=== PATIENT | male | born 1945 | race Caucasian/White ===

== ENCOUNTER → 2018-06-11 | Outpatient (CLI) | payer OTHER | LOC: MRI 13:58 | DX: M47.816 Spondylosis without myelopathy or radiculopathy, lumbar region (principal); M47.814 Spondylosis without myelopathy or radiculopathy, thoracic region; M48.061 Spinal stenosis, lumbar region without neurogenic claudication; M48.02 Spinal stenosis, cervical region; M41.86 Other forms of scoliosis, lumbar region; M51.36 Other intervertebral disc degeneration, lumbar region; M51.26 Other intervertebral disc displacement, lumbar region; M25.78 Osteophyte, vertebrae; M12.88 Other specific arthropathies, not elsewhere classified, other specified site; M50.221 Other cervical disc displacement at C4-C5 level; M50.321 Other cervical disc degeneration at C4-C5 level ==

== ENCOUNTER → 2020-01-03 | Outpatient (CLI) | payer OTHER ==
[~2020-01-03] MED LIST: ADVAIR 250-501 EACH INH; ARICEPT10 M1 PO; BELSOMRA10 MG PO; CARVEDILOL12.5 MG PO; CLONAZEPAM 0.50.5 M1 PO; FISH OIL 1,001000 M3 PO; FUROSEMIDE 20 M20 MG PO; GABAPENTIN600 M1 PO; HYDROCODON-ACE1 EAC5 PO; IPRAT-ALBUT 0.5-3 ML INH; LIDODERM1 EACH TOP; LOSARTAN POTASS50 MG PO; LYRICA100 MG PO; NITROGLYCERIN0.3 M1 SUBLING; NOVOLIN R100 UNIT/1 SUBQ; NOVOLOG MI100 UNIT/M SUBQ; OXYCODONE HCL20 M1 PO; OXYCONTIN20 M1 PO; PLAVIX 75 MG TA75 MG PO; SINEMET 25-1001 EAC1 PO; SOMA350 MG PO; VENTOLIN HFA 1818 GM INH; WELLBUTRIN SR100 MG PO; ZETIA10 MG PO
--- NOTE | ~2020-01-03 | HPC ---
[facility] [place] [address] PAIN MANAGEMENT CONSULTATION Name: ANAIS FOSTER Room #: REG MAMADOU Dionte.#: [id number] Admission: 01/03/20 Attend Phys: Fritz Nuñez DO Discharge: Date of : 47 Report #: [id number] THIS REPORT FOR: cc: Carlos Stewart MD, John A. MD Johnson, James E. DO ~ CC: Fritz Garcia RN DATE OF SERVICE: 01/03/2020 REFERRING PHYSICIAN: Carlos Stewart MD CHIEF COMPLAINT: Low back pain, right lower extremity pain. HISTORY OF PRESENT ILLNESS: As you know, the patient is a 74-year-old male who reports longstanding history of low back pain, right lower extremity pain with paresthesias. The patient states his pain began to intensify on 07/10/2019. He denies any specific injury or trauma that may have led to symptom development. The patient has had longstanding history of progressively worsening low back symptoms. Imaging from 2018 showed severe lateral recess stenosis at 2 levels consistent with the patient's pain distribution in the low back and right lower extremity. The patient recently sought evaluation through his neurosurgeon team who advised him to trial epidural injections. He is on excessively high doses of opioids taking over 290 morphine equivalents a day, 200 mg over what the CDC recommends for top dose of opioid medication for chronic pain as well as taking high-dose gabapentin and concomitant Lyrica, though these both have similar activity. Despite these medications, his pain remains at a level of reported 8-10/10. He has been referred to our clinic to discuss the possibility of undergoing an epidural injection in hopes of improving pain. The patient indicates his pain is continuous. He describes the pain as throbbing, sharp, stabbing, tender, numbness and tingling. He places current pain score at 8/10, daily average at 10/10, worst pain has been is 10/10. The patient states that activities such as sitting for long periods of time or even standing for long periods of time exacerbates symptoms, walking tends to be the only thing that improves the pain and medications. He has been referred to our service to discuss treatment options for lumbar radiculopathy secondary to severe and progressively worsening lateral recess stenosis. PAST MEDICAL HISTORY: 1. Diabetes mellitus type 2. [place] [address] PAIN MANAGEMENT CONSULTATION Name: ANAIS FOSTER Lesvia Room #: REG MAMADOU Flood#: [id number] Admission: 01/03/20 Attend Phys: Fritz Nuñez DO Discharge: Date of : 47 Report #: [id number] 2. Chronic asthma. 3. Severe chronic obstructive pulmonary disease. 4. Degenerative joint disease. 5. Osteoarthritis. 6. Hypertension. 7. Chronic lumbar radiculopathy. 8. Movement disorder. 9. Dyslipidemia. 10. Chronic anticoagulation. 11. Chronic insomnia. 12. Depression. 13. Muscle spasms. PAST SURGICAL HISTORY: 1. Thoracotomy with decortication. 2. Cervical fusion. SOCIAL HISTORY: The patient reports he is a 2-pack a day smoker and has done so for greater than 40 years, a total of [id number] history of smoking. He denies IV or illicit drug use. Denies any chronic alcohol use. 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 He is not receiving workmen's compensation nor is he trying to obtain disability benefits. He is not in litigation in regards to pain. He is unaccompanied at today's visit. REVIEW OF SYSTEMS: Positive for fatigue and weakness, shortness of breath with walking or lying flat, chest pain, frequent and recurrent cough, abdominal pain, nocturia, numbness and tingling sensations, tremors, paralysis, stroke, nervousness, depression, insomnia, insulin-dependent diabetes. All others are negative per 12-point review of systems other than those listed in history of present illness. Pain impact score 55/70, indicating severe interference of daily activities secondary to pain. ALLERGIES: SULFA. CURRENT MEDICATIONS: OxyContin 20 mg 3 times a day, oxycodone 20 mg 4 times a day, hydrocodone 10/325 one tab every 6 hours p.r.n. for pain, maximum of 8 per day; albuterol 2 puffs q. 4 hours p.r.n.; Sinemet 25/100 mg 3 times a day; omega-3 fish oil 1 tab per day; gabapentin 600 mg 4 times a day; Zetia 10 mg once a day; clonazepam 2 mg 3 times a day; Lidoderm patch applied topically every 12 hours at a time; Plavix 75 mg per day; losartan 25 mg per day; Lyrica 100 mg 3 times a day; Advair Diskus 250/50 one puff b.i.d.; donepezil 10 mg once a day; Belsomra 10 mg once a day; carvedilol 12.5 mg 2 tabs per day; NovoLog 10 units subcutaneous twice a day with meals; furosemide 20 mg per day; nitroglycerin 0.4 mg sublingual p.r.n.; bupropion 100 mg once a day; Ventolin 2 puffs every 6 hours; carisoprodol 350 mg 3 times a day. [address] [place] [address] PAIN MANAGEMENT CONSULTATION Name: ANAIS FOSTER Room #: REG [facility]#: [id number] Admission: 01/03/20 Attend Phys: Fritz Nuñez DO Discharge: Date of : 47 Report #: [id number] IMAGING: MRI lumbar spine obtained 06/11/2018 shows leftward scoliosis of the lumbar spine with multilevel degenerative disk disease and facet arthropathy. This has progressed significantly since 2005. Severe narrowing of the right lateral recess at L3-L4, likely compression of the right L4 nerve root. Severe narrowing of the left lateral recesses at L4-L5, abutting and compressing the L5 nerve root on the left. PQRS: The patient has known arthritic changes of the cervical, thoracic and lumbar spine, bilateral hips and knees. No rheumatoid arthritis. He is placing current pain score 8/10. He is a fall risk, but has not had a fall in last 3 months. He is utilizing a cane for ambulation and balance. He is on blood thinners. He is treated for hypertension. He is on chronic opioids and an excessively high dose on a daily basis. He has a high risk of opioid addiction. Pain impact score is calculated at 55/70, severe interference of daily activities secondary to pain. PHYSICAL EXAMINATION: VITAL SIGNS: Blood pressure 123/80, pulse 88, respiratory rate 16 and unlabored. The patient is 100% on room air. Height is not reported, weight 168 pounds. GENERAL: Well-developed, kyphotic and scoliotic 74-year-old male, appears much older than stated age, smells strongly of tobacco smoke, placing current pain score at 8/10. HEENT: Normocephalic, atraumatic. Pupils equal, round, reactive to light. NEUROLOGIC: Speech is fluent for the patient. He is short of breath with full sentences. LUNGS: Noted wheezing and prolonged expiratory phase. He is coughing consistently throughout our examination. EXTREMITIES: Show no clubbing, no cyanosis, no edema. MUSCULOSKELETAL: The patient has palpatory tenderness over the paraspinal musculature of the mid thoracic, lower thoracic, upper lumbar, middle lumbar and lower lumbar areas. No spinous process tenderness. There is noted severe kyphotic and scoliotic curvature. Seated straight leg raising is positive. Supine straight leg raising is positive. Muscle bulk and tone are diminished bilaterally, but appear symmetrical. Ankle clonus negative. Babinski is negative. Gait is extremely antalgic favoring the right lower extremity. ASSESSMENT: 1. Symptomatic lumbar radiculopathy. 2. Severe lateral recess stenosis. 3. Displacement of lumbar intervertebral disk with radiculopathy. 4. Lumbosacral spondylosis with radiculopathy. 5. Severe facet arthropathy of the lumbar spine. 6. Severe neural foraminal stenosis of lumbar spine. 7. [place] [address] PAIN MANAGEMENT CONSULTATION Name: ANAIS FOSTER Lesvia [facility] [id number] Admission: 01/03/20 Attend Phys: Fritz Nuñez DO Discharge: Date of : 47 Report #: [id number] PLAN: 1. Based on today's physical exam and history the patient has provided, the description the patient uses in regard to pain as well as the distribution of symptoms, the likely source of the patient's pain is lumbar radiculopathy. Unfortunately, we have imaging that is almost 2 years old to review, but this does show severe lateral recess stenosis and neural foraminal stenosis consistent with the patient's symptoms at the L3-L4 and L4-L5 level. We discussed with the patient the findings of the MRI from 2018 and how they have likely progressed, though I cannot tell the patient how significantly that progression has been but certainly from his 2006 imaging to his 2018 imaging his scoliosis has severely progressed. The patient and I discussed his recent visit with Neurosurgery who advised a trial of conservative treatment initially. If this is unsuccessful, then a discussion of fusion surgery. The patient was subsequently then sent to our clinic to discuss interventional treatments. He is taking high dose opioids and high doses of neuropathic medications and despite these medications, complaining of pain at 8/10. He has been referred to our clinic to discuss options for treatment. The following was discussed with the patient today. We discussed physical therapy, stretching exercises and core strengthening as a treatment course. We also discussed medication management to continue the current dosing with the understanding that the pain improvement will not been noted at escalating doses given the high dose medications he is currently on, especially with his opioids, which have known sealing affect. We discussed the epidural injection for which the patient was referred to our clinic and ultimately surgical decompression. After reviewing the risks and benefits of all the proposed treatment options, the patient chose to move forward with a lumbar epidural injection. 2. The patient was advised that due to third libertarian payer restrictions, authorization had to be obtained before the patient can undergo an epidural injection. This in conjunction with the patient will also need to stop his Plavix for the next 7 days to safely undergo the procedure proposed based on PAT guidelines. We will begin the authorization process immediately and the patient will stop his Plavix in preparation for the procedure. We are hopeful to have the authorization completed in the 7 days, so that the patient is off the Plavix in the right amount of time to undergo the procedure. We will begin this authorization process immediately and keep the patient apprised of our success. 3. As indicated above, the patient will have to receive authorization to come off his Plavix. The prescribing physician will need to be contacted and a request for the discontinuation of the Plavix to be approved. The patient will have to be off the Plavix for 7 days per PAT guidelines. If he is unable to come off the Plavix, this will preclude the patient from having the capability of undergoing a lumbar epidural injection. 4. No medication changes made at today's visit except for the discontinuation [address] [address] PAIN MANAGEMENT CONSULTATION Name: ANAIS FOSTER Room #: REG [facility] Lory.#: [id number] Admission: 01/03/20 Attend Phys: Fritz Nuñez DO Discharge: Date of : 47 Report #: [id number] of the Plavix as above. The patient will continue his current medications except for the Plavix as directed. 5. We will see the patient back in followup visit, hopefully in 1 week to undergo the requested lumbar epidural injection under fluoroscopic guidance to determine if his symptoms would be amenable to such procedure. We wish to thank Mayra Garcia, nurse practitioner and Dr. Carlos Stewart for the opportunity to see this patient in consultation. We will keep you apprised of his response to the requested lumbar epidural injection under fluoroscopic guidance. Again, we wish to thank you for the opportunity to see this patient in consultation. By: 1646 01 Fritz Nuñez DO /nt
[2020-01-03 14:17] VITALS: BP 123/80
--- NOTE | 2020-01-03 15:50 | NUR ---
4Pain Clinic Assessment: 1. History of Osteoarthritis: LOW BACK History of Rheumatoid Arthritis: 2. Height: ft. in. cm. Weight: 168.0 lb. oz. 76.204 kg. Patient's BMI: 3. Vital Signs: BP: 123/80 Pulse: 88 Resp: 16 Temp: 02 Sat: 100 ECG Mon: 4. Pain Intensity: 8 5. Fall Risk: Dizziness: N Needs help standing or walking: Y Fallen in the last 3 months: N Fall risk comments: 6. Patient on Blood Thinner: None 7. History of Hypertension: Y 8. Opioid Therapy greater than 6 weeks: Y Opiate Contract Signed: 9. Risk Assessment Tool Provided: Opioid Risk Tool 10. Functional Assessment Tool: LOW 11. Recreational Drug Use: Never Drug Type: Tobacco Use: Current Every Day Smoker Tobacco Type: Cigarettes Amount or Packs/day: 2 How Many Years: 40 Alcohol Use: No Frequency: Quant:
--- NOTE | 2020-01-03 15:51 | NUR ---
01/03/2020 MEDICATIONS CONFIRMED BY RN AND PATIENT/CONFIRMED THAT PATIENT WAS TAKING BOTH GABAPENTIN AND LYRICA/MEDICATIONS WRITTEN BY
== END ==
LOC: PAIN 06:55
DX: M54.16 Radiculopathy, lumbar region (principal); M79.604 Pain in right leg; E11.9 Type 2 diabetes mellitus without complications; J44.9 Chronic obstructive pulmonary disease, unspecified; M19.90 Unspecified osteoarthritis, unspecified site; I10 Essential (primary) hypertension; E78.5 Hyperlipidemia, unspecified; G25.9 Extrapyramidal and movement disorder, unspecified; M62.838 Other muscle spasm; F51.09 Other insomnia not due to a substance or known physiological condition; F32.9 Major depressive disorder, single episode, unspecified; Z98.1 Arthrodesis status; Z79.899 Other long term (current) drug therapy; Z79.01 Long term (current) use of anticoagulants

== ENCOUNTER → 2020-01-10 | Outpatient (CLI) | payer OTHER ==
[~2020-01-10] VITALS: Ht 165.1 cm; Wt 76.2 kg
[2020-01-10 14:06] VITALS: BP 116/71
--- NOTE | 2020-01-10 14:35 | NUR ---
Pain Clinic Assessment: 1. History of Osteoarthritis: LOW BACK History of Rheumatoid Arthritis: 2. Height: 5 ft. 5 in. 165.1 cm. Weight: 168.0 lb. oz. 76.204 kg. Patient's BMI: 28.0 3. Vital Signs: BP: 116/71 Pulse: 87 Resp: 16 Temp: 02 Sat: 96 ECG Mon: 4. Pain Intensity: 9 5. Fall Risk: Dizziness: N Needs help standing or walking: Y Fallen in the last 3 months: N Fall risk comments: 6. Patient on Blood Thinner: None 7. History of Hypertension: Y 8. Opioid Therapy greater than 6 weeks: Y Opiate Contract Signed: 9. Risk Assessment Tool Provided: Opioid Risk Tool 10. Functional Assessment Tool: LOW 11. Recreational Drug Use: Never Drug Type: Tobacco Use: Current Every Day Smoker Tobacco Type: Cigarettes Amount or Packs/day: 2 How Many Years: 40 Alcohol Use: No Frequency: Quant:
--- NOTE | 2020-01-11 12:59 | HPC ---
[address] [address] PAIN MANAGEMENT CONSULTATION Name: ANAIS FOSTER [facility] [id number] Admission: 01/10/20 Attend Phys: Fritz Nuñez DO Discharge: Date of : 47 Report #: [id number] THIS REPORT FOR: cc: Carlos Stewart MD, John A. MD Johnson, James E. DO ~ DATE OF SERVICE: 01/10/2020 REFERRING PHYSICIAN: Carlos Stewart M.D. CHIEF COMPLAINT: Low back pain, right lower extremity pain. HISTORY OF PRESENT ILLNESS: As you know, the patient is a 75-year-old male with longstanding history of low back pain, right lower extremity pain with paresthesias. The pain according to the patient began on 07/10/2019. He denied any specific injury or trauma. He was seen by his neurosurgeon who referred the patient to our clinic to trial epidural injections under fluoroscopic guidance. He was seen in consultation per the request of Dr. Stewart on 01/03/2020 where we discussed lumbar epidural injections under fluoroscopic guidance. The patient chose to undergo the procedure after hearing the details of the process. He required authorization through his third green party payer to undergo the epidural injection. He also had to come off his Plavix for 7 days in preparation for the procedure. He has come off his Plavix and we have received authorization for the patient to undergo the first in a series of epidural injections today. He is placing his pain today at around 9/10. He has had no changes in medical history since our last visit. ALLERGIES: SULFA. CURRENT MEDICATIONS: See extensive list in chart. SOCIAL HISTORY: The patient continues to smoke 2 packs of tobacco per day and has done so for greater than 40 years with a total of 27-[id number] history of smoking. Denies IV or illicit drug use. Denies any chronic alcohol use. He is a retired manager talent management. He is unaccompanied today. IMAGING: No new imaging available. PQRS: The patient has known arthritic changes of the cervical, thoracic and lumbar spine, bilateral hips and knees. No rheumatoid arthritis. He is placing pain intensity at 9/10. He is a fall risk, but has not had a fall in last 3 months. He is utilizing a cane for ambulation and balance. He is on blood thinners, but has stopped the medication 7 days ago in preparation for today's procedure. He is treated for hypertension. He is on chronic opioids at very high dosing. He has a risk potential of opioid addiction [place] [address] PAIN MANAGEMENT CONSULTATION Name: ANAIS FOSTER Room #: REG [facility]#: [id number] Admission: 01/10/20 Attend Phys: Fritz Nuñez DO Discharge: Date of : 47 Report #: [id number] indicating pain impact at 40/70, moderate interference of daily activities secondary to pain. PHYSICAL EXAMINATION: VITAL SIGNS: Blood pressure 116/71, pulse 87, respiratory rate 16 and unlabored. The patient is 96% on room air. Height 5 feet 5 inches tall, weight 168 pounds, BMI calculated 28.0. GENERAL: Well-developed, well-nourished, well-hydrated, kyphotic and scoliotic 75-year-old male who smells strongly of tobacco smoke, placing current pain score at 9/10. HEENT: Normocephalic, atraumatic. Pupils are reactive. NEUROLOGIC: Speech fluent. The patient deemed a good historian. EXTREMITIES: Show some mild clubbing, no cyanosis, no edema. MUSCULOSKELETAL: The patient reports no spinous process tenderness again with palpation. There is severe kyphosis and scoliotic curvature. Seated straight leg raising is positive. Supine straight leg raising is positive. Modified Gaenslen's positive for axial low back pain. Ankle clonus negative. Babinski is negative. Gait is antalgic favoring right lower extremity. ASSESSMENT: 1. Symptomatic lumbar radiculopathy. 2. Severe lateral recess stenosis. 3. Displacement of lumbar intervertebral disk with radiculopathy. 4. Lumbosacral spondylosis with radiculopathy. 5. Severe facet arthropathy of the lumbar spine. 6. Severe neural foraminal stenosis of lumbar spine. 7. Chronic intractable pain. PLAN: 1. The patient returns today in followup visit having received authorization to undergo a lumbar epidural injection. The patient has also been off his Plavix for 7 days per PAT guidelines to undergo the epidural injection. The patient has been advised risks and benefits of a lumbar epidural injection. These risks include but are not necessarily limited to bleeding, bruising, infection, worsening pain, no relief of pain, also risk of temporary or permanent muscle weakness, temporary or permanent nerve damage, possible paralysis and . The patient states understood and wishes to proceed. The patient was also advised that risks are assumed with steroid injections during COVID-19 pandemic. He has been shown that steroids reduce the immune response and thus placed the patient at a much higher risk for contraction of COVID-19 specifically given his age and his underlying medical condition. We also advised the patient that with steroid exposure, there may be a worsening of symptoms if he has symptoms of COVID or develops the symptoms of COVID-19. The patient states he understands these risks in regards to COVID-19 and wishes to proceed. 2. No medication changes made at today's visit. The patient is to continue current medical therapy as prior prescribed. [address] [address] PAIN MANAGEMENT CONSULTATION Name: ANAIS FOSTER Room #: REG [facility].#: [id number] Admission: 01/10/20 Attend Phys: Fritz Nuñez DO Discharge: Date of : 47 Report #: [id number] 3. We will see the patient back in followup visit in approximately 1 month. At that time, we will review the efficacy of today's epidural injection and determine if next in the series of epidural injections might be necessary. We are hopeful the patient will see good and prolonged benefit with today's epidural injection. PROCEDURE NOTE: DESCRIPTION OF PROCEDURE: L5-S1 right paramedian epidural steroid injection under fluoroscopic guidance. This is the first procedure of the first series that the patient is undergoing. After obtaining written consent, the patient was taken back to the fluoroscopy suite, placed in a prone position with pillow under the abdomen to decrease lumbar lordosis. The skin overlying the lumbosacral area was then prepped and draped in aseptic fashion. The L5-S1 vertebral interspace was then identified by AP fluoroscopy. The skin and subcutaneous tissue overlying the target site of injection was anesthetized with 3 mL 1% lidocaine. A(n) 20-guage 3.5 inch Tuohy needle was then advanced under fluoroscopic guidance towards the epidural space using a right paramedian approach. The epidural space was identified using loss of resistance to air technique. After negative aspiration for heme or cerebrospinal fluid, a total of 1 mL of Omnipaque was injected. A lumbar epidurogram was confirmed using both AP and lateral fluoroscopy. After negative aspiration for heme or cerebrospinal fluid, 5 mL of a solution containing 2 mL 40 mg per mL, 80 mg total triamcinolone along with 3 mL lidocaine 1% was injected in increments. Contrast spread was noted posterior epidural space. The needle was then retracted approximately half way and needle tract flushed with 1 mL of 1% lidocaine. Needle was then removed. There were no apparent sensory or motor deficits in the lower extremity following the procedure. A sterile bandage was placed over the injection site. The heart rate, pulse, oximetry and blood pressure were continuously monitored after the procedure. There were no apparent complications. The patient tolerated the procedure well and was carefully escorted to the recovery room in stable condition. There were no apparent complications. After meeting discharge criteria, the patient was then discharged home. <ELECTRONICALLY SIGNED> By: Fritz Nuñez DO 01/11/20 [id number] Fritz Nuñez DO /nt
== END | disposition home or self-care (01) ==
LOC: PAIN 06:58
DX: M51.16 Intervertebral disc disorders with radiculopathy, lumbar region (principal); M47.27 Other spondylosis with radiculopathy, lumbosacral region; M48.061 Spinal stenosis, lumbar region without neurogenic claudication; M47.26 Other spondylosis with radiculopathy, lumbar region; G89.29 Other chronic pain; I10 Essential (primary) hypertension; M19.90 Unspecified osteoarthritis, unspecified site; Z79.891 Long term (current) use of opiate analgesic; Z79.899 Other long term (current) drug therapy; Z88.2 Allergy status to sulfonamides